=== PATIENT | female | born 1965 | race Caucasian/White ===

== ENCOUNTER 2018-03-17 15:15 | Emergency (ER) | payer BC ==
[2018-03-17 15:43] VITALS: BP 137/84
[2018-03-17] MEDS ORDERED: Lidocaine 1% with EPINEPHrine 1:100,000 20 ML MDV INJECT ONE (16:10)
--- NOTE | 2018-03-17 16:15 | EDM.PDOC ---
ED HPI GENERAL MEDICAL PROBLEM - General Chief Complaint: Laceration Stated Complaint: LEFT HAND LAC Time Seen by Provider: 03/17/18 16:00 Source of Information: Reports: Patient History Limitations: Reports: No Limitations - History of Present Illness INITIAL COMMENTS - FREE TEXT/NARRATIVE: Charity is a 53yo female, presents ambulatory to ED after lacerating her left hand with an exacto knife this afternoon while trying to cut the top of a pop can off. Laceration is 2cm, linear, between thumb and index finger. Bleeding is now controlled. She is unsure of last tetanus but "just had a physical and they said everything was up to date" at [facility]. Onset: Today Location: Reports: Upper Extremity, Left, Lower Extremity, Left Context: Reports: Trauma Treatments BLACK TOP RAKER: Reports: Other (see below) Other Treatments BLACK TOP RAKER: pressure - Related Data Allergies Allergy/AdvReac Type Severity Reaction Status Date / Time Penicillins Allergy Rash Verified 09/12/14 09:39 Home Meds: Home Meds . [No Known Home Meds] 09/10/16 [History] Past Medical History HEENT History: Reports: Impaired Vision Other HEENT History: glasses Gastrointestinal History: Reports: Hemorrhoids Musculoskeletal History: Reports: Fracture, RA Neurological History: Reports: Migraines Endocrine/Metabolic History: Reports: Hyperthyroidism Other Endocrine/Metabolic History: cysts on thyroids Social & Family History - Family History Family Medical History: Noncontributory - Tobacco Use Smoking Status *Q: Never Smoker - Caffeine Use Caffeine Use: Reports: Coffee, Soda - Recreational Drug Use Recreational Drug Use: No ED ROS GENERAL - Review of Systems Review Of Systems: See Below Constitutional: Reports: No Symptoms HEENT: Reports: No Symptoms Respiratory: Reports: No Symptoms Cardiovascular: Reports: No Symptoms Musculoskeletal: Reports: No Symptoms Skin: Reports: Other (laceration to lt hand, see HPI) Neurological: Reports: No Symptoms. Denies: Numbness, Paresthesia, Tingling ED EXAM, SKIN/RASH Exam: See Below Exam Limited By: No Limitations General Appearance: Alert, WD/WN, No Apparent Distress Eye Exam: Bilateral Eye: EOMI Ears: Normal External Exam, Hearing Grossly Normal Nose: Normal Inspection Throat/Mouth: Normal Inspection, Normal Lips, Normal Teeth, Normal Voice Head: Atraumatic, Normocephalic Neck: Normal Inspection Respiratory/Chest: No Respiratory Distress Cardiovascular: Normal Peripheral Pulses Peripheral Pulses: 2+: Radial (L), Radial (R) Extremities: Other (2cm linear laceration to skin between thumb and index finger to left hand, bleeding controlled, CMS intact to both thumb and index finger) Neurological: Alert, Oriented, CN II-XII Intact Psychiatric: Normal Affect, Normal Mood, Other (talkative) Skin: Warm, Dry, Wound/Incision (see exam under extremities) Location, Skin: Upper Extremity, Left Characteristics: Linear (laceration) ED SKIN PROCEDURES - Laceration/Wound Repair Left Hand Lac/Wound length In cm: 2 Appearance: Linear Distal NVT: Neuro & Vascular Intact, No Tendon Injury Anesthetic Type: Local Local Anesthesia - Lidocaine (Xylocaine): 1% with EPI Skin Prep: Chlorhexidine (Hibiciens) Exploration/Debridement/Repair: Wound Explored, In a Bloodless Field, Explored to Base, No Foreign Material Found Closed with: Sutures Suture Size: 4-0 Suture Type: Interrupted Course - Vital Signs Last Recorded V/S: Last Vital Signs Temp 98.7 F 03/17/18 15:41 Pulse 73 03/17/18 15:41 Resp 20 03/17/18 15:41 BP 137/84 03/17/18 15:41 Pulse Ox 99 03/17/18 15:41 - Orders/Labs/Meds Meds: Medications Discontinued Medications Generic Name Dose Route Start Last Admin Trade Name Elen PRN Reason Stop Dose Admin Lidocaine/Epinephrine 20 ml 03/17/18 16:10 03/17/18 16:57 Xylocaine 1% With Epinephrine 1:100,000 INJECT 03/17/18 16:11 20 ml ONETIME ONE Administration Departure - Departure Time of Disposition: 17:08 Disposition: Home, Self-Care 01 Condition: Good Clinical Impression: Laceration - Discharge Information Instructions: Laceration Care, Adult, [id number] Referrals: Olivia Carranza, MECHANICAL SERVICE SPECIALIST [Primary Care Provider] - Forms: ED Department Discharge Additional Instructions: Keep wound clean and dry, can wash hands with soap and water as usual and shower as usual, do not soak hand/wound. Antibiotic ointment and bandage during the day, can be open to air at night Suture removal in 7 - 10 days with PCP or walk-in clinic; follow up if symptoms of infection develop please follow up or return to ER
== END 2018-03-17 17:15 | disposition home or self-care (01) ==
LOC: JD.ED 15:15
DX: S61.412A Laceration without foreign body of left hand, initial encounter (principal); W26.0XXA Contact with knife, initial encounter; Z88.0 Allergy status to penicillin
CPT/HCPCS: 12001; 99282-25; 99283-25

== ENCOUNTER 2019-01-25 12:59 | Emergency (ER) | payer BC ==
[2019-01-25 13:06] VITALS: BP 157/82
[2019-01-25] MEDS ORDERED: Ketorolac 30 MG/ML SDV IVPUSH ONE (13:51)
[2019-01-25] MEDS ORDERED: Sodium Chloride 0.9% 1,000 ML IV SCH (14:00)
--- NOTE | 2019-01-25 14:06 | EDM.PDOC ---
ED HPI GENERAL MEDICAL PROBLEM - General Chief Complaint: Abdominal Pain Stated Complaint: [facility] Time Seen by Provider: 01/25/19 13:05 Source of Information: Reports: Patient, Old Records, RN Notes Reviewed History Limitations: Reports: No Limitations - History of Present Illness INITIAL COMMENTS - FREE TEXT/NARRATIVE: Patient is a 54-year-old female who presents to the ED for the evaluation of abdominal pain. The patient was seen at the walk-in clinic this morning for evaluation, and the patient believes she had a minor panic attack when they were trying to discharge her, so she was sent to the ED via ambulance service for further evaluation. The patient's labs and CT done at [facility] were all within normal limits. The patient states that she has been having some intermittent troubles with heavy vaginal bleeding, and one episode from December 29 January 01, and then the most current episode from January 15 today. The patient notes that she does have heavy bleeding, with some clots. She states that she changes her pad every 2 hours. She has been evaluated by Dr. Gramajo for this , and she did put on a progesterone taper. The patient also notes that she has had some minor thyroid issues, with her levels being at the low end of normal. The patient states she did have some left lower back pain yesterday and went to the chiropractor. She states that she noticed her right sided back pain started last night. The patient notes a history of endometriosis, and she is premenopausal, she does notice some hot flashes from time to time, however she does not feel that she is having hot flashes at this time. She denies any fevers but feels chilled. She had denies any nausea/vomiting/diarrhea. She states that her last normal bowel movement was this morning. The patient further denies any history of any chronic lower back issues. Abdomen Pain Score (Numeric/FACES): 10 - Related Data Allergies Allergy/AdvReac Type Severity Reaction Status Date / Time cephalexin Allergy Hives Verified 08/25/18 10:08 Penicillins Allergy Rash Verified 08/25/18 10:08 Home Meds: Home Meds Cyclobenzaprine [Flexeril] 5 mg PO BID PRN 01/25/19 [History] Folic Acid 1 mg PO DAILY 01/25/19 [History] L.acidoph,Paracasei, B.lactis [Probiotic] 1 each PO DAILY 01/25/19 [History] Methotrexate 15 mg PO Q7D 01/25/19 [History] medroxyPROGESTERone [Provera] 10 mg PO DAILY 01/25/19 [History] Past Medical History HEENT History: Reports: Impaired Vision Other HEENT History: glasses Gastrointestinal History: Reports: Hemorrhoids SUSTAIN ENGINEER History: Reports: Other (See Below) Other SUSTAIN ENGINEER History: irregular vaginal bleeding Musculoskeletal History: Reports: Fracture, RA Neurological History: Reports: Migraines Endocrine/Metabolic History: Reports: Hyperthyroidism Other Endocrine/Metabolic History: cysts on thyroids Social & Family History - Family History Family Medical History: Noncontributory - Tobacco Use Smoking Status *Q: Never Smoker - Caffeine Use Caffeine Use: Reports: Coffee - Recreational Drug Use Recreational Drug Use: No ED ROS GENERAL - Review of Systems Review Of Systems: See Below Constitutional: Reports: Chills HEENT: Reports: No Symptoms Respiratory: Reports: No Symptoms Cardiovascular: Reports: No Symptoms Endocrine: Reports: No Symptoms GI/Abdominal: Reports: Abdominal Pain (bilateral lower abdominal pain) : Reports: Flank Pain (right sided and into right groin), Irregular Menses ( dysfunctional uterine bleeding). Denies: Dysuria Musculoskeletal: Reports: Back Pain (right sided lower) Skin: Reports: No Symptoms Neurological: Reports: No Symptoms Psychiatric: Reports: No Symptoms Hematologic/Lymphatic: Reports: No Symptoms ED EXAM, GI/ABD - Physical Exam Exam: See Below Exam Limited By: No Limitations General Appearance: Alert, WD/WN, No Apparent Distress Eyes: Bilateral: Normal Appearance Ears: Normal External Exam Nose: Normal Inspection Throat/Mouth: Normal Inspection, Normal Oropharynx Head: Atraumatic, Normocephalic Neck: Normal Inspection, Supple, Non-Tender, Full Range of Motion Respiratory/Chest: No Respiratory Distress, Lungs Clear, Normal Breath Sounds, No Accessory Muscle Use, Chest Non-Tender Cardiovascular: Normal Peripheral Pulses, Regular Rate, Rhythm, No Murmur GI/Abdominal Exam: Normal Bowel Sounds, Soft, No Distention, No Mass, Tender ( bilateral lower quadrants and suprapubic with deep palpation) (Female) Exam: Deferred (states that she had a vaginal exam done by Dr. Gramajo a couple weeks ago.) Back Exam: Normal Inspection, Full Range of Motion Extremities: Normal Inspection, Normal Capillary Refill Neurological: Alert, Oriented, Normal Cognition, No Motor/Sensory Deficits Psychiatric: Normal Affect, Normal Mood Skin Exam: Warm, Dry, Intact, Normal Color, No Rash Course - Vital Signs Last Recorded V/S: Last Vital Signs Temp 98.7 F 01/25/19 13:04 Pulse 70 01/25/19 13:04 Resp 20 01/25/19 13:04 BP 157/82 H 01/25/19 13:04 Pulse Ox 100 01/25/19 13:04 - Orders/Labs/Meds Orders: Active Orders 24 hr Category Date Time Status Sodium Chloride 0.9% [Normal Saline] 1,000 ml Med 01/25/19 14:00 Ordered IV ASDIRECTED Medication Orders Sodium Chloride (Normal Saline) 1,000 mls @ 999 mls/hr IV ASDIRECTED MARIEL Last Admin: 01/25/19 14:00 Dose: 999 mls/hr Meds: Medications Generic Name Dose Route Start Last Admin Trade Name Freq PRN Reason Stop Dose Admin Sodium Chloride 1,000 mls @ 999 mls/hr 01/25/19 14:00 01/25/19 14:00 Normal Saline IV 999 mls/hr ASDIRECTED MARIEL Administration Discontinued Medications Generic Name Dose Route Start Last Admin Trade Name Freq PRN Reason Stop Dose Admin Ketorolac Tromethamine 30 mg 01/25/19 13:51 01/25/19 14:01 Toradol IVPUSH 01/25/19 13:52 30 mg ONETIME ONE Administration - Re-Assessments/Exams Free Text/Narrative Re-Assessment/Exam: 01/25/19 14:11 Patient presents to the ED for the evaluation of right sided abdominal pain. Her pain presentation is suspicious for a kidney stone in nature, however your CT at [facility] was done with contrast but also did not show any signs of possible kidney stone like hydronephrosis or ureteral dilatation. Her UA was positive for blood, however she is bleeding per her vagina as well. It is hard to delineate whether this is the actual cause of her pain or not. I have ordered 30 mg IV Toradol and IV fluids to be given for management at the ER today. It appears that [facility] did draw a free T4 level, and I will add a TSH to see if she is hyper or hypothyroid at this time. 01/25/19 15:44 Patient's TSH level is back, and is low at 0.192. Which would suggest that she is hyperthyroid at this time. I did order a T3 level, thyroid antibodies and a thyroid peroxidase to be drawn for evaluation. However these are send out labs , this was made known to the patient and she understands that she will be called with the results of these tests. I have recommended that she take it easy over the weekend, and that she may take ibuprofen as needed for further pain relief. She was educated on serious signs and when to return to the ER. She states she does have a referral with an flexible shaft winder however has not been able to correlate appointment. It was made imperative to her that she try harder to make an appointment with the flexible shaft winder for further evaluation of her hyperthyroidism. Departure - Departure Time of Disposition: 15:50 Disposition: Home, Self-Care 01 Condition: Fair Clinical Impression: Abdominal pain Qualifiers: Abdominal location: lower abdomen, unspecified Qualified Code(s): R10.30 - Lower abdominal pain, unspecified - Discharge Information *PRESCRIPTION DRUG MONITORING PROGRAM REVIEWED*: No *COPY OF PRESCRIPTION DRUG MONITORING REPORT IN PATIENT MARISELA: No Instructions: Abdominal Pain, Adult, [id number] Additional Instructions: You have been evaluated in the ED today for your lower abdominal pain. Your lab work done today demonstrate that you're TSH level is low, which means that you are in a mild hyperthyroid state. A few more labs have been ordered at this ED visit, however these are send out labs and you will be made known of the results as they are resulted to us. Recommend that you make an appointment with the flexible shaft winder that you have a referral to, for further evaluation of your thyroid issue. Please take it easy over the weekend, and limit your activities. You may take up to 600 mg ibuprofen every 6 hours for pain relief. Please return to the ED if your symptoms should change or worsen. - My Orders Last 24 Hours: My Active Orders 01/25/19 14:00 Sodium Chloride 0.9% [Normal Saline] 1,000 ml IV ASDIRECTED - Assessment/Plan Last 24 Hours: My Active Orders 01/25/19 14:00 Sodium Chloride 0.9% [Normal Saline] 1,000 ml IV ASDIRECTED
== END 2019-01-25 16:24 | disposition home or self-care (01) ==
LOC: JD.ED 12:59
DX: R10.30 Lower abdominal pain, unspecified (principal); Z88.0 Allergy status to penicillin; Z88.1 Allergy status to other antibiotic agents; Z79.899 Other long term (current) drug therapy
CPT/HCPCS: 36415; 84443; 84479; 86376; 86800; 96361; 96374; 99284; J1885; J7040

== ENCOUNTER 2019-12-30 08:17 | Emergency (ER) | payer BC ==
[2019-12-30 08:54] VITALS: PULSE 72
[2019-12-30] MEDS ORDERED: Sodium Chloride 0.9% 10 ML Syringe FLUSH PRN (08:57)
--- NOTE | 2019-12-30 09:05 | EDM.PDOC ---
ED HPI GENERAL MEDICAL PROBLEM - General Chief Complaint: Chest Pain Stated Complaint: CHEST PRESSURE/HEADACHE Time Seen by Provider: 12/30/19 08:47 Source of Information: Reports: Patient History Limitations: Reports: No Limitations - History of Present Illness INITIAL COMMENTS - FREE TEXT/NARRATIVE: The patient presents with chest pain and epigastric pain. This is like a pressure. It started last night. She has no shortness of breath with it. She has been having chills and then hot flashes. She also has a headache to the right occipital region. This comes and goes and it has been going on for weeks. She has no numbness or weakness. She does have some nausea but no vomiting. She denies fever, cough, numbness, weakness of feeling off balance. Onset: Gradual Duration: Day(s): Location: Reports: Head, Chest Quality: Reports: Pressure Severity: Mild Improves with: Reports: None Worsens with: Reports: None Associated Symptoms: Reports: Chest Pain, Fever/Chills, Headaches, Nausea/ Vomiting. Denies: Cough, Shortness of Breath Chest Pain Score (Numeric/FACES): 3 - Related Data Allergies Allergy/AdvReac Type Severity Reaction Status Date / Time celecoxib Allergy Hives Verified 12/30/19 08:43 cephalexin Allergy Hives Verified 12/30/19 08:43 Penicillins Allergy Rash Verified 12/30/19 08:43 Home Meds: Home Meds Cyclobenzaprine [Flexeril] 10 mg PO TID PRN #20 tab 12/30/19 [Rx] Methimazole [Tapazole] 5 mg PO DAILY 12/30/19 [History] buPROPion HCL [Bupropion HCl Sr] 100 mg PO DAILY 12/30/19 [History] Past Medical History HEENT History: Reports: Impaired Vision Other HEENT History: glasses Gastrointestinal History: Reports: Hemorrhoids REVIT DRAFTER History: Reports: Other (See Below) Other REVIT DRAFTER History: irregular vaginal bleeding Musculoskeletal History: Reports: Fracture, RA Neurological History: Reports: Migraines Endocrine/Metabolic History: Reports: Hyperthyroidism Other Endocrine/Metabolic History: cysts on thyroids Social & Family History - Family History Family Medical History: Noncontributory - Caffeine Use Caffeine Use: Reports: Coffee ED ROS GENERAL - Review of Systems Review Of Systems: See Below Constitutional: Reports: Chills. Denies: Fever HEENT: Reports: No Symptoms Respiratory: Reports: No Symptoms Cardiovascular: Reports: Chest Pain Endocrine: Reports: No Symptoms GI/Abdominal: Reports: Abdominal Pain, Nausea. Denies: Diarrhea, Vomiting : Reports: No Symptoms Musculoskeletal: Reports: No Symptoms Neurological: Reports: Headache ED EXAM, GENERAL - Physical Exam Exam: See Below Exam Limited By: No Limitations General Appearance: Alert, No Apparent Distress Eye Exam: Bilateral Eye: EOMI, PERRL Ears: Normal External Exam, Normal Canal, Normal TMs Nose: Normal Inspection Throat/Mouth: Normal Inspection Head: Atraumatic, Normocephalic, Other (Mild pain upon palpation to the right occipital region) Neck: Normal Inspection, Supple, Non-Tender Respiratory/Chest: No Respiratory Distress, Lungs Clear, Normal Breath Sounds Cardiovascular: Regular Rate, Rhythm, No Edema, No Murmur GI/Abdominal: Soft, Non-Tender, No Organomegaly, No Mass Back Exam: Normal Inspection Extremities: Normal Inspection Neurological: Alert, Oriented, No Motor/Sensory Deficits EKG INTERPRETATION EKG Date: 12/30/19 Time: 08:43 Rhythm: NSR Rate (Beats/Min): [address] [place]: Normal P-Wave: Present QRS: Normal ST-T: Normal QT: Normal Course - Vital Signs Last Recorded V/S: Last Vital Signs Temp 98.6 F 12/30/19 08:40 Pulse 72 12/30/19 08:40 Resp 12 12/30/19 08:40 BP 170/97 H 12/30/19 08:40 Pulse Ox 98 12/30/19 08:40 - Orders/Labs/Meds Orders: Active Orders 24 hr Category Date Time Status Cardiac Monitoring [RC] . DIRECTED Care 12/30/19 08:57 Active EKG Documentation Completion [RC] STAT Care 12/30/19 08:58 Active Peripheral IV Care [RC] . DIRECTED Care 12/30/19 08:58 Active Sodium Chloride 0.9% [Saline Flush] Med 12/30/19 08:57 Active 10 ml FLUSH ASDIRECTED PRN Peripheral IV Insertion Adult [OM.PC] Stat Oth 12/30/19 08:57 Ordered Medication Orders Sodium Chloride (Saline Flush) 10 ml FLUSH ASDIRECTED PRN PRN Reason: Keep Vein Open Last Admin: 12/30/19 09:20 Dose: 10 ml Labs: Laboratory Tests 12/30/19 12/30/19 12/30/19 Range/Units 09:20 09:20 09:20 WBC 3.97 L (3.98-10.04) K/mm3 RBC 4.46 (3.98-5.22) M/mm3 Hgb 13.7 (11.2-15.7) gm/dl Hct 42.3 (34.1-44.9) % MCV 94.8 D (79.4-94.8) fl MCH 30.7 (25.6-32.2) pg MCHC 32.4 (32.2-35.5) g/dl RDW Std Deviation 41.5 (36.4-46.3) fL Plt Count 346 D (182-369) K/mm3 MPV 9.2 L (9.4-12.3) fl Neut % (Auto) 69.4 (34.0-71.1) % Lymph % (Auto) 20.2 (19.3-51.7) % Rogers % (Auto) 8.3 (4.7-12.5) % Eos % (Auto) 1.8 (0.7-5.8) Baso % (Auto) 0.3 (0.1-1.2) % Neut # (Auto) 2.76 (1.56-6.13) K/mm3 Lymph # (Auto) 0.80 L (1.18-3.74) K/mm3 Rogers # (Auto) 0.33 (0.24-0.36) K/mm3 Eos # (Auto) 0.07 (0.04-0.36) K/mm3 Baso # (Auto) 0.01 (0.01-0.08) K/mm3 ESR 19 (0-20) mm/hr Sodium 142 (136-145) mEq/L Potassium 4.2 (3.5-5.1) mEq/L Chloride 105 (98-107) mEq/L Carbon Dioxide 31 (21-32) mEq/L Anion Gap 10.2 (5-15) BUN 10 (7-18) mg/dL Creatinine 0.8 (0.55-1.02) mg/dL Est Cr Clr Drug Dosing 68.05 mL/min Estimated GFR (MDRD) > 60 (>60) mL/min BUN/Creatinine Ratio 12.5 L (14-18) Glucose 100 (74-106) mg/dL Calcium 9.4 (8.5-10.1) mg/dL Total Bilirubin 1.0 (0.2-1.0) mg/dL AST 15 (15-37) U/L ALT 30 (14-59) U/L Alkaline Phosphatase 81 (46-116) U/L Troponin I < 0.017 (0.00-0.056) ng/mL C-Reactive Protein <0.2 (<1.0) mg/dL Total Protein 7.6 (6.4-8.2) g/dl Albumin 4.2 (3.4-5.0) g/dl Globulin 3.4 gm/dL Albumin/Globulin Ratio 1.2 (1-2) TSH 3rd Generation 1.427 (0.358-3.74) uIU/mL Meds: Medications Generic Name Dose Route Start Last Admin Trade Name Freq PRN Reason Stop Dose Admin Sodium Chloride 10 ml 12/30/19 08:57 12/30/19 09:20 Saline Flush FLUSH 10 ml ASDIRECTED PRN Administration Keep Vein Open - Re-Assessments/Exams Free Text/Narrative Re-Assessment/Exam: 12/30/19 09:05 I ordered an IV saline lock, EKG, CXR, CT of her head, and labs. 12/30/19 10:47 Her EKG shows a NSR with no acute changes. Her CT shows minimal mastoid sinus finding which are believed to be incidental and pre-existing. No acute intracranial abnormality is appreciated. Her CXR looks good. Her CBC and CMP look good. Her ESR and CRP are normal. Her troponin is negative. Her TSH is normal. She had the headache come back so I ordered some toradol. I will discharge her home with some muscle relaxers and see if that helps. Departure - Departure Time of Disposition: 10:50 Disposition: Home, Self-Care 01 Condition: Good Clinical Impression: Atypical chest pain Headache Qualifiers: Headache type: unspecified Headache chronicity pattern: acute headache Intractability: not intractable Qualified Code(s): R51 - Headache Prescriptions: Cyclobenzaprine [Flexeril] 10 mg PO TID PRN #20 tab PRN Reason: Pain Referrals: Theresa Whyte MD [Primary Care Provider] - 1 Week Forms: ED Department Discharge Additional Instructions: Take tylenol or motrin for pain. You can also try the flexeril every 8 hours as needed for the headache. Do not drive while taking it. Please return if you are worse. Sepsis Event Note - Evaluation Sepsis Screening Result: No Definite Risk - Focused Exam Vital Signs: Vital Signs Temp Pulse Resp BP Pulse Ox 12/30/19 08:40 98.6 F 72 12 170/97 H 98 Date Exam was Performed: 12/30/19 Time Exam was Performed: 10:47 - My Orders Last 24 Hours: My Active Orders 12/30/19 08:57 Cardiac Monitoring [RC] . DIRECTED Sodium Chloride 0.9% [Saline Flush] 10 ml FLUSH ASDIRECTED PRN Peripheral IV Insertion Adult [OM.PC] Stat 12/30/19 08:58 EKG Documentation Completion [RC] STAT Peripheral IV Care [RC] . DIRECTED - Assessment/Plan Last 24 Hours: My Active Orders 12/30/19 08:57 Cardiac Monitoring [RC] . DIRECTED Sodium Chloride 0.9% [Saline Flush] 10 ml FLUSH ASDIRECTED PRN Peripheral IV Insertion Adult [OM.PC] Stat 12/30/19 08:58 EKG Documentation Completion [RC] STAT Peripheral IV Care [RC] . DIRECTED
--- NOTE | 2019-12-30 09:35 | CT ---
Head CT Technique: Multiple axial sections through the brain were obtained. Comparison: Previous head CT exam of 09/12/14. Findings: Ventricles along with basal cisterns and sulci over the convexities are within normal limits for the patient's age. No abnormal parenchymal densities are seen. No evidence of intracranial hemorrhage. No midline shift or mass-effect is seen. Bone window settings were reviewed. No acute calvarial abnormality is appreciated. Minimal mucosal thickening is seen within the inferior mastoid sinuses on both sides. No acute paranasal sinus findings are seen. Impression: 1. Minimal mastoid sinus finding which are believed to be incidental and pre-existing. 2. No acute intracranial abnormality is appreciated. Diagnostic code #2 This report was dictated in MDT
--- NOTE | 2019-12-30 09:46 | CR ---
Chest: PA and lateral views of the chest were obtained. Comparison: No prior chest imaging is available. Mild scoliosis is noted within the spine. Heart size and mediastinum are normal. Lungs show no acute parenchymal change. Impression: 1. Nothing acute is appreciated on two-view chest x-ray. Diagnostic code #2 This report was dictated in MDT
[2019-12-30] MEDS ORDERED: Ketorolac 30 MG/ML SDV IVPUSH ONE (10:47)
[2019-12-30 11:21] VITALS: BP 147/89
== END 2019-12-30 11:20 | disposition home or self-care (01) ==
LOC: JD.ED 08:17
DX: R07.89 Other chest pain (principal); R51 Headache; Z88.1 Allergy status to other antibiotic agents; Z88.0 Allergy status to penicillin; Z79.899 Other long term (current) drug therapy
CPT/HCPCS: 36415; 70450; 71046; 80053; 84443; 84484; 85025; 85652; 86140; 93005; 96374; 99285; J1885; 93010; 99284

== ENCOUNTER 2020-06-17 17:10 | Emergency (ER) | payer BC ==
[2020-06-17 17:21] VITALS: BP 158/85; PULSE 67
[2020-06-17] MEDS ORDERED: Sodium Chloride 0.9% 10 ML Syringe FLUSH PRN (17:26)
[2020-06-17] MEDS ORDERED: Aspirin 81 MG Tab.Chew PO ONE (17:40)
--- NOTE | 2020-06-17 17:41 | EDM.PDOC ---
ED HPI GENERAL MEDICAL PROBLEM - General Chief Complaint: Chest Pain Stated Complaint: CHEST PAIN Time Seen by Provider: 06/17/20 17:26 Source of Information: Reports: Patient, RN Notes Reviewed - History of Present Illness INITIAL COMMENTS - FREE TEXT/NARRATIVE: Patient is a 55-year-old female presenting to the emergency department with complaints of intermittent midsternal chest pain that began this morning around 11 AM. She also reports that she had a headache this morning, however it has since resolved. She describes the pain as intermittent spasming feeling in her mid upper chest. She does occasionally get short of breath when the pain occurs. She estimates that the pain occurs a few times an hour and lasts about 30 to 40 seconds but it does occur. She denies any nausea, vomiting, or esophageal reflux. She denies any significant cardiac history. States she was diagnosed with a urinary tract infection in the clinic on Monday and has been taking Macrobid for the treatment of this ever since. Middle Chest Pain Score (Numeric/FACES): 6 - Related Data Allergies Allergy/AdvReac Type Severity Reaction Status Date / Time celecoxib Allergy Hives Verified 06/17/20 17:22 cephalexin Allergy Hives Verified 06/17/20 17:22 Penicillins Allergy Rash Verified 06/17/20 17:22 Home Meds: Home Meds Cyclobenzaprine [Flexeril] 10 mg PO TID PRN #20 tab 12/30/19 [Rx] Propranolol HCl 20 mg PO Q8H PRN 12/30/19 [History] buPROPion HCL [Bupropion HCl Sr] 100 mg PO DAILY 12/30/19 [History] methIMAzole [Tapazole] 5 mg PO DAILY 12/30/19 [History] Cyclobenzaprine [Flexeril] 5 - 10 mg PO Q8H PRN #15 tab 06/17/20 [Rx] Past Medical History HEENT History: Reports: Impaired Vision Other HEENT History: glasses Cardiovascular History: Reports: Other (See Below) Other Cardiovascular History: 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 History: Reports: Other (See Below) Other COMMERCIAL GLAZIER History: irregular vaginal bleeding Musculoskeletal History: Reports: Fracture, RA Neurological History: Reports: Migraines Psychiatric History: Reports: Anxiety Endocrine/Metabolic History: Reports: Hyperthyroidism Other Endocrine/Metabolic History: cysts on thyroids Hematologic History: Reports: Anemia - Infectious Disease History Infectious Disease History: Reports: Chicken Pox - Past Surgical History GI Surgical History: Reports: Colonoscopy Social & Family History - Family History Family Medical History: Noncontributory - Tobacco Use Smoking Status *Q: Never Smoker Second Hand Smoke Exposure: No - Caffeine Use Caffeine Use: Reports: None - Recreational Drug Use Recreational Drug Use: No ED ROS GENERAL - Review of Systems Review Of Systems: See Below Constitutional: Reports: No Symptoms. Denies: Fever, Chills, Weakness HEENT: Reports: No Symptoms Respiratory: Reports: Shortness of Breath (Occasional). Denies: Cough Cardiovascular: Reports: Chest Pain. Denies: Dyspnea on Exertion, Lightheadedness, Palpitations Endocrine: Reports: No Symptoms GI/Abdominal: Reports: No Symptoms. Denies: Abdominal Pain, Nausea, Vomiting : Reports: No Symptoms Musculoskeletal: Reports: No Symptoms Skin: Reports: No Symptoms Neurological: Reports: No Symptoms Psychiatric: Reports: No Symptoms Hematologic/Lymphatic: Reports: No Symptoms Immunologic: Reports: No Symptoms ED EXAM, GENERAL - Physical Exam Exam: See Below General Appearance: Alert, WD/WN, No Apparent Distress Respiratory/Chest: No Respiratory Distress, Lungs Clear, Normal Breath Sounds, No Accessory Muscle Use, Chest Non-Tender Cardiovascular: Normal Peripheral Pulses, Regular Rate, Rhythm, No Edema, No Gallop, No JVD, No Murmur, No Rub GI/Abdominal: Normal Bowel Sounds, Soft, Non-Tender, No Organomegaly, No Distention, No Abnormal Bruit, No Mass Neurological: Alert, Oriented, CN II-XII Intact, Normal Cognition, Normal Gait, Normal Reflexes, No Motor/Sensory Deficits Psychiatric: Normal Affect, Normal Mood Skin Exam: Warm, Dry, Intact, Normal Color, No Rash Course - Vital Signs Last Recorded V/S: Last Vital Signs Temp 98.4 F 06/17/20 17:18 Pulse 67 06/17/20 17:18 Resp 18 06/17/20 17:18 BP 158/85 H 06/17/20 17:18 Pulse Ox 100 06/17/20 17:18 - Orders/Labs/Meds Orders: Active Orders 24 hr Category Date Time Status EKG 12 Lead [EKG Documentation Completion] [RC] URGENT Care 06/17/20 17:26 Active EKG Documentation Completion [RC] STAT Care 06/17/20 17:26 Active Peripheral IV Care [RC] . DIRECTED Care 06/17/20 17:26 Active Chest 2V [CR] Stat Exams 06/17/20 17:26 Taken Sodium Chloride 0.9% [Saline Flush] Med 06/17/20 17:26 Active 10 ml FLUSH ASDIRECTED PRN Peripheral IV Insertion Adult [OM.PC] Stat Oth 06/17/20 17:26 Ordered Medication Orders Sodium Chloride (Saline Flush) 10 ml FLUSH ASDIRECTED PRN PRN Reason: Keep Vein Open Last Admin: 06/17/20 17:45 Dose: 10 ml Documented by: LESLEY Labs: Laboratory Tests 06/17/20 06/17/20 06/17/20 Range/Units 17:41 17:41 17:41 WBC 3.53 L (3.98-10.04) K/mm3 RBC 4.20 (3.98-5.22) M/mm3 Hgb 13.0 (11.2-15.7) gm/dl Hct 39.2 (34.1-44.9) % MCV 93.3 (79.4-94.8) fl MCH 31.0 (25.6-32.2) pg MCHC 33.2 (32.2-35.5) g/dl RDW Std Deviation 41.6 (36.4-46.3) fL Plt Count 313 (182-369) K/mm3 MPV 9.2 L (9.4-12.3) fl Neut % (Auto) 64.7 (34.0-71.1) % Lymph % (Auto) 22.9 (19.3-51.7) % [place] % (Auto) 10.2 (4.7-12.5) % Eos % (Auto) 1.4 (0.7-5.8) Baso % (Auto) 0.8 (0.1-1.2) % Neut # (Auto) 2.28 (1.56-6.13) K/mm3 Lymph # (Auto) 0.81 L (1.18-3.74) K/mm3 [place] # (Auto) 0.36 (0.24-0.36) K/mm3 Eos # (Auto) 0.05 (0.04-0.36) K/mm3 Baso # (Auto) 0.03 (0.01-0.08) K/mm3 D-Dimer, Quantitative < 0.19 L (0.19-0.50) mg/L Sodium 140 (136-145) mEq/L Potassium 4.0 (3.5-5.1) mEq/L Chloride 103 (98-107) mEq/L Carbon Dioxide 30 (21-32) mEq/L Anion Gap 11.0 (5-15) BUN 14 (7-18) mg/dL Creatinine 0.7 (0.55-1.02) mg/dL Est Cr Clr Drug Dosing 76.88 mL/min Estimated GFR (MDRD) > 60 (>60) mL/min BUN/Creatinine Ratio 20.0 H (14-18) Glucose 89 (74-106) mg/dL Calcium 9.0 (8.5-10.1) mg/dL Total Bilirubin 1.0 (0.2-1.0) mg/dL AST 14 L (15-37) U/L ALT 26 (14-59) U/L Alkaline Phosphatase 109 (46-116) U/L Troponin I < 0.017 (0.00-0.056) ng/mL C-Reactive Protein 0.4 (<1.0) mg/dL Total Protein 7.2 (6.4-8.2) g/dl Albumin 4.2 (3.4-5.0) g/dl Globulin 3.0 gm/dL Albumin/Globulin Ratio 1.4 (1-2) Meds: Medications Generic Name Dose Route Start Last Admin Trade Name Freq PRN Reason Stop Dose Admin Sodium Chloride 10 ml 06/17/20 17:26 06/17/20 17:45 Saline Flush FLUSH 10 ml ASDIRECTED PRN Administration Keep Vein Open Discontinued Medications Generic Name Dose Route Start Last Admin Trade Name Freq PRN Reason Stop Dose Admin Aspirin 324 mg 06/17/20 17:40 06/17/20 17:44 Aspirin PO 06/17/20 17:41 324 mg ONETIME ONE Administration Al Hydroxide/Mg Hydroxide 30 0 ml 06/17/20 18:45 ml/ Lidocaine HCl 15 ml PO 06/17/20 18:46 ONETIME ONE - Re-Assessments/Exams Free Text/Narrative Re-Assessment/Exam: 06/17/20 19:06 Hematology was grossly unremarkable. D-dimer was negative, troponin was negative, EKG showed a normal sinus rhythm with no acute abnormalities. Chest x-ray was normal. Discussed with patient that pain could relate to esophageal spasms versus intermittent spasms of the muscles in the chest wall. Patient declined a GI cocktail. I have ordered Toradol 30 mg IV to be given now prior to discharge. Recommend that she use [id number] ibuprofen as needed for discomfort. I will also send a prescription for Flexeril for muscle spasms. Discharge instructions as documented. Departure - Departure Time of Disposition: 19:06 Disposition: Home, Self-Care 01 Condition: Good Clinical Impression: Atypical chest pain Prescriptions: Cyclobenzaprine [Flexeril] 5 - 10 mg PO Q8H PRN #15 tab PRN Reason: Muscle Spasm Instructions: Nonspecific Chest Pain, Adult Referrals: Theresa Whyte GEOMORPHOLOGIST [Primary Care Provider] - Forms: ED Department Discharge Additional Instructions: You were seen in the emergency department today for intermittent mid chest pain. Your work-up included blood work, an EKG of your heart, and a chest x-ray. Your work-up was found to be completely normal. You are not having heart attack and you do not have blood clots in your lungs. Your electrolytes were also found to be normal. As we discussed, possible causes of this could be esophageal spasms or muscle spasms within the chest wall. GI cocktail was declined in the emergency department. You did receive Toradol which is an NSAID through your IV. Recommend that you use [id number] ibuprofen routinely over the next few days; however, you should not take your next dose until 6 hours after you received the Toradol in the ER. A prescription for Flexeril has also been sent. This is a muscle relaxer and may help to reduce the symptoms. Take this medication as prescribed as needed for muscle spasms. Please be aware that this can make you sleepy. Recommend follow-up with your primary care provider at her next available visit. Return to the ER for any new or worsening symptoms of concern. Sepsis Event Note (ED) - Evaluation Sepsis Screening Result: No Definite Risk - Focused Exam Vital Signs: Vital Signs Temp Pulse Resp BP Pulse Ox 06/17/20 17:18 98.4 F 67 18 158/85 H 100 - My Orders Last 24 Hours: My Active Orders 06/17/20 17:26 EKG 12 Lead [EKG Documentation Completion] [RC] URGENT EKG Documentation Completion [RC] STAT Peripheral IV Care [RC] . DIRECTED Chest 2V [CR] Stat Sodium Chloride 0.9% [Saline Flush] 10 ml FLUSH ASDIRECTED PRN Peripheral IV Insertion Adult [OM.PC] Stat - Assessment/Plan Last 24 Hours: My Active Orders 06/17/20 17:26 EKG 12 Lead [EKG Documentation Completion] [RC] URGENT EKG Documentation Completion [RC] STAT Peripheral IV Care [RC] . DIRECTED Chest 2V [CR] Stat Sodium Chloride 0.9% [Saline Flush] 10 ml FLUSH ASDIRECTED PRN Peripheral IV Insertion Adult [OM.PC] Stat
[2020-06-17] MEDS ORDERED: Alum Hydrox/Mag Hydrox/Simeth 30 ML, Lidocaine 2% 15 ML PO ONE ×2 (18:45)
[2020-06-17] MEDS ORDERED: Ketorolac 30 MG/ML SDV IVPUSH ONE (19:05)
--- NOTE | 2020-06-17 19:25 | CR ---
Chest: PA and lateral views of the chest were obtained. Comparison: Prior chest x-ray of 12/30/19. Heart size is felt to be slightly prominent. Upper mediastinum is normal. Lungs are clear. Slight scoliosis is noted within the spine which is stable. Mild scattered disc space narrowing is noted within the spine. Impression: 1. Findings as noted above. 2. Nothing acute is seen. Diagnostic code #2 This report was dictated in MDT
== END 2020-06-17 19:00 | disposition home or self-care (01) ==
LOC: JD.ED 17:10
DX: R07.89 Other chest pain (principal); R07.2 Precordial pain; R51 Headache; F41.9 Anxiety disorder, unspecified; Z88.0 Allergy status to penicillin; Z88.1 Allergy status to other antibiotic agents; Z79.899 Other long term (current) drug therapy
CPT/HCPCS: 36415; 71046; 80053; 84484; 85025; 85379; 86140; 93005; 96374; 99285; A9270; J1885; 93010; 99283

== ENCOUNTER 2021-09-06 20:06 | Emergency (ER) | payer BC ==
[2021-09-06 20:26] VITALS: BP 158/97; PULSE 69
--- NOTE | 2021-09-06 20:55 | CR ---
Chest: PA and lateral views of the chest were obtained. Comparison: Prior chest x-ray of 06/17/20. Heart size is at the upper limits of normal. Upper mediastinum appears within normal limits. Lungs are clear with no acute parenchymal change. Bony structures appear within normal limits for the patient's age. Impression: 1. Findings as described above. 2. Nothing acute is seen. No change from previous study is seen. Diagnostic code #2
--- NOTE | 2021-09-06 21:25 | EDM.PDOC ---
ED HPI GENERAL MEDICAL PROBLEM - General Chief Complaint: Chest Pain Stated Complaint: CHEST PAINS THROUGHOUT THE DAY Time Seen by Provider: 09/06/21 20:09 Source of Information: Reports: Patient, RN Notes Reviewed History Limitations: Reports: No Limitations - History of Present Illness INITIAL COMMENTS - FREE TEXT/NARRATIVE: Patient is a 56-year-old female presenting to the emergency department for evaluation of intermittent chest pressure throughout the day. Patient reports symptoms come and go and are minimally present at the time of exam. Patient reports that she has been having intermittent palpitations for the last few weeks; however, she does not report any today. She wore a Holter monitor last week and was notified that she had 2 episodes of tachycardia while wearing it. Patient does have a history of hyperthyroidism but has been off her Tapazole since April. Reports when she feels the palpitations coming on, she has been taking a propanolol that was prescribed by her ladies attendant for this. Symptoms do eventually resolved with the use of this. She was called by her ladies attendant today after she reviewed the results of her Holter monitor and started on metoprolol succinate 50 mg daily. She has not taken this yet. Reports her TSH was checked on by her primary care provider and she was told that it was in the normal range. When she has the chest pressure and palpitations, she reports she does feel anxious and jittery. Sometimes it feels like it is difficult for her to swallow. She had an episode today while at the pharmacy and states that her blood pressure was found to be in the 180s systolically, however after resting for a few minutes it came down to the 150s. Baseline heart rate for her is in the 70s and 80s, however when she has the palpitations she reports a heart rate pf 110-120. She denies any cough or shortness of breath, but states she has felt somewhat fatigued throughout the day. Patient reports that she is fully vaccinated against Covid. Bilateral Upper Chest Pain Score (Numeric/FACES): 6 - Related Data Allergies Allergy/AdvReac Type Severity Reaction Status Date / Time celecoxib Allergy Severe Hives Verified 09/06/21 20:26 cephalexin Allergy Severe Hives Verified 09/06/21 20:26 Penicillins Allergy Severe Rash Verified 09/06/21 20:26 Home Meds: Home Meds Propranolol HCl 20 mg PO Q8H PRN 12/30/19 [History] buPROPion HCL [Bupropion HCl Sr] 100 mg PO DAILY 12/30/19 [History] methIMAzole [Tapazole] 5 mg PO DAILY 12/30/19 [History] Cyclobenzaprine [Flexeril] 5 - 10 mg PO BID PRN 09/06/21 [History] Metoprolol Succinate 50 mg PO DAILY 09/06/21 [History] Past Medical History HEENT History: Reports: Impaired Vision Other HEENT History: glasses Cardiovascular History: Reports: Other (See Below) Other Cardiovascular History: 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: Reports: Other (See Below) Other TRAINS DISPATCHER SUPERVISOR History: irregular vaginal bleeding Musculoskeletal History: Reports: Fracture, RA Neurological History: Reports: Migraines Psychiatric History: Reports: Anxiety Endocrine/Metabolic History: Reports: Hyperthyroidism Other Endocrine/Metabolic History: cysts on thyroids Hematologic History: Reports: Anemia - Infectious Disease History Infectious Disease History: Reports: Chicken Pox - Past Surgical History GI Surgical History: Reports: Colonoscopy Social & Family History - Family History Family Medical History: No Pertinent Family History - Caffeine Use Caffeine Use: Reports: None ED ROS GENERAL - Review of Systems Review Of Systems: See Below Constitutional: Reports: Fatigue. Denies: Fever, Chills HEENT: Reports: No Symptoms Respiratory: Reports: No Symptoms. Denies: Shortness of Breath, Cough Cardiovascular: Reports: Chest Pain (Pressure) Endocrine: Reports: No Symptoms GI/Abdominal: Reports: No Symptoms : Reports: No Symptoms Musculoskeletal: Reports: No Symptoms Skin: Reports: No Symptoms Neurological: Reports: No Symptoms. Denies: Confusion, Dizziness, Headache Psychiatric: Reports: Anxiety Hematologic/Lymphatic: Reports: No Symptoms Immunologic: Reports: No Symptoms ED EXAM, GENERAL - Physical Exam Exam: See Below Exam Limited By: No Limitations General Appearance: Alert, WD/WN, No Apparent Distress Respiratory/Chest: No Respiratory Distress, Lungs Clear, Normal Breath Sounds, No Accessory Muscle Use, Chest Non-Tender Cardiovascular: Normal Peripheral Pulses, Regular Rate, Rhythm, No Edema, No Gallop, No JVD, No Murmur, No Rub GI/Abdominal: Normal Bowel Sounds, Soft, Non-Tender, No Organomegaly, No Distention, No Abnormal Bruit, No Mass Neurological: Alert, Oriented, Normal Cognition, Normal Gait, No Motor/Sensory Deficits Psychiatric: Normal Affect, Normal Mood Skin Exam: Warm, Dry, Intact, Normal Color, No Rash #1 Interpretation EKG Date: 09/06/21 Time: 20:17 Rhythm: NSR Rate (Beats/Min): 65 [place]: Normal P-Wave: Present QRS: Normal ST-T: Normal QT: Normal Course - Vital Signs Last Recorded V/S: Last Vital Signs Temp 97.3 F 09/06/21 20:16 Pulse 69 09/06/21 20:16 Resp 18 09/06/21 20:16 BP 158/97 H 09/06/21 20:16 Pulse Ox 99 09/06/21 20:16 - Orders/Labs/Meds Labs: Laboratory Tests 09/06/21 09/06/21 09/06/21 Range/Units 20:32 20:32 20:32 WBC 3.93 L (3.98-10.04) K/mm3 RBC 4.03 (3.98-5.22) M/mm3 Hgb 12.3 (11.2-15.7) gm/dl Hct 37.2 (34.1-44.9) % MCV 92.3 (79.4-94.8) fl MCH 30.5 (25.6-32.2) pg MCHC 33.1 (32.2-35.5) g/dl RDW Std Deviation 40.8 (36.4-46.3) fL Plt Count 304 (182-369) K/mm3 MPV 9.3 L (9.4-12.3) fl Neut % (Auto) 63.3 (34.0-71.1) % Lymph % (Auto) 27.0 (19.3-51.7) % [place] % (Auto) 7.6 (4.7-12.5) % Eos % (Auto) 1.8 (0.7-5.8) Baso % (Auto) 0.3 (0.1-1.2) % Neut # (Auto) 2.49 (1.56-6.13) K/mm3 Lymph # (Auto) 1.06 L (1.18-3.74) K/mm3 [place] # (Auto) 0.30 (0.24-0.36) K/mm3 Eos # (Auto) 0.07 (0.04-0.36) K/mm3 Baso # (Auto) 0.01 (0.01-0.08) K/mm3 D-Dimer, Quantitative < 0.19 L (0.19-0.50) mg/L Sodium 144 (136-145) mEq/L Potassium 3.8 (3.5-5.1) mEq/L Chloride 106 (98-107) mEq/L Carbon Dioxide 30 (21-32) mEq/L Anion Gap 11.8 (5-15) BUN 15 (7-18) mg/dL Creatinine 0.7 (0.55-1.02) mg/dL Est Cr Clr Drug Dosing 76.00 mL/min Estimated GFR (MDRD) > 60 (>60) mL/min BUN/Creatinine Ratio 21.4 H (14-18) Glucose 146 H (70-99) mg/dL Calcium 8.8 (8.5-10.1) mg/dL Total Bilirubin 0.7 (0.2-1.0) mg/dL AST 13 L (15-37) U/L ALT 22 (14-59) U/L Alkaline Phosphatase 100 (46-116) U/L Troponin I < 0.017 (0.00-0.056) ng/mL C-Reactive Protein <0.2 (<1.0) mg/dL Total Protein 6.7 (6.4-8.2) g/dl Albumin 4.0 (3.4-5.0) g/dl Globulin 2.7 gm/dL Albumin/Globulin Ratio 1.5 (1-2) TSH 3rd Generation (0.358-3.74) uIU/mL SARS-CoV-2 RNA (DAYA) (NEGATIVE) 09/06/21 09/06/21 Range/Units 20:32 21:30 WBC (3.98-10.04) K/mm3 RBC (3.98-5.22) M/mm3 Hgb (11.2-15.7) gm/dl Hct (34.1-44.9) % MCV (79.4-94.8) fl MCH (25.6-32.2) pg MCHC (32.2-35.5) g/dl RDW Std Deviation (36.4-46.3) fL Plt Count (182-369) K/mm3 MPV (9.4-12.3) fl Neut % (Auto) (34.0-71.1) % Lymph % (Auto) (19.3-51.7) % [place] % (Auto) (4.7-12.5) % Eos % (Auto) (0.7-5.8) Baso % (Auto) (0.1-1.2) % Neut # (Auto) (1.56-6.13) K/mm3 Lymph # (Auto) (1.18-3.74) K/mm3 [place] # (Auto) (0.24-0.36) K/mm3 Eos # (Auto) (0.04-0.36) K/mm3 Baso # (Auto) (0.01-0.08) K/mm3 D-Dimer, Quantitative (0.19-0.50) mg/L Sodium (136-145) mEq/L Potassium (3.5-5.1) mEq/L Chloride (98-107) mEq/L Carbon Dioxide (21-32) mEq/L Anion Gap (5-15) BUN (7-18) mg/dL Creatinine (0.55-1.02) mg/dL Est Cr Clr Drug Dosing mL/min Estimated GFR (MDRD) (>60) mL/min BUN/Creatinine Ratio (14-18) Glucose (70-99) mg/dL Calcium (8.5-10.1) mg/dL Total Bilirubin (0.2-1.0) mg/dL AST (15-37) U/L ALT (14-59) U/L Alkaline Phosphatase (46-116) U/L Troponin I (0.00-0.056) ng/mL C-Reactive Protein (<1.0) mg/dL Total Protein (6.4-8.2) g/dl Albumin (3.4-5.0) g/dl Globulin gm/dL Albumin/Globulin Ratio (1-2) TSH 3rd Generation 0.380 (0.358-3.74) uIU/mL SARS-CoV-2 RNA (DAYA) Negative (NEGATIVE) - Re-Assessments/Exams Free Text/Narrative Re-Assessment/Exam: Patient is a 56-year-old female presenting to the emergency department for evaluation of intermittent chest pressure throughout the day today. Reports history of hyperthyroidism but has been off of her Tapazole since April. Exam is unremarkable. I have ordered blood work, chest x-ray, EKG, Covid testing. 09/06/21 21:38 Hematology is overall unremarkable. TSH is 0.380 which is very close to the cutoff for hyperthyroid. Is possible that she is having some hyperthyroid symptoms at this level. D-dimer and troponin are both undetectably low. EKG shows no acute abnormalities. Chest x-ray is normal. Recommend that she begin taking the metoprolol succinate as prescribed. She has a follow-up appointment scheduled her primary care provider, Theresa Whyte, on Monday. Recommend that she keep this. We will call her with her Covid results as it will likely be another hour until results are available. She is in agreement with this plan. Discharge instructions as documented. Departure - Departure Time of Disposition: 21:40 Disposition: Home, Self-Care 01 Condition: Good Clinical Impression: Atypical chest pain Instructions: Nonspecific Chest Pain, Adult Referrals: Theresa Whyte, DIGITAL MARKETING EXECUTIVE [Primary Care Provider] - Forms: ED Department Discharge Additional Instructions: Take the metoprolol succinate as prescribed. Continue all previously prescribed medications. Keep follow-up appointment as scheduled with your primary care provider on Monday. Return to ER for any new or worsening symptoms. Sepsis Event Note (ED) - Evaluation Sepsis Screening Result: No Definite Risk - Focused Exam Vital Signs: Vital Signs Temp Pulse Resp BP Pulse Ox 09/06/21 20:16 97.3 F 69 18 158/97 H 99
== END 2021-09-06 22:00 | disposition home or self-care (01) ==
LOC: JD.ED 20:06
DX: R07.89 Other chest pain (principal); Z88.1 Allergy status to other antibiotic agents; Z88.0 Allergy status to penicillin; Z20.822 Contact with and (suspected) exposure to COVID-19
CPT/HCPCS: 36415; 71046; 71046-26; 80053; 84443; 84484; 85025; 85379; 86140; 93005; 93010; 99284; 99285-25; U0002

== ENCOUNTER 2021-09-08 09:55 | Emergency (ER) | payer BC ==
[2021-09-08 10:13] VITALS: BP 163/93; PULSE 53
[2021-09-08] MEDS ORDERED: Alum Hydrox/Mag Hydrox/Simeth 30 ML, Lidocaine 2% 15 ML PO ONE ×2 (10:27)
[2021-09-08] MEDS ORDERED: Sodium Chloride 0.9% 10 ML Syringe FLUSH PRN (10:27)
--- NOTE | 2021-09-08 10:59 | EDM.PDOC ---
ED HPI GENERAL MEDICAL PROBLEM - General Chief Complaint: Chest Pain Stated Complaint: chest pain Time Seen by Provider: 09/08/21 09:59 Source of Information: Reports: Patient History Limitations: Reports: No Limitations - History of Present Illness INITIAL COMMENTS - FREE TEXT/NARRATIVE: 56-year-old female presents the emergency department today with complaints of intermittent chest pressure. Patient has been seen here recently 2 days ago and in May 2021 with similar complaints. Patient states she does have a history of thyroid issues and does see an family readiness support assistant. She states back in February she was taken off of her thyroid medication as her levels had remained constant. She states she does not see her family readiness support assistant again until December 2021, however most recently did see her family readiness support assistant in June 2021. She states she was recently started on metoprolol and has taken this for the past 2 nights. She states last night she did eat to chocolates and shortly after developed intermittent chest pressure. She did not take any medications at that time to attempt to relieve the discomfort. She states she was recently started on omeprazole approximately 1 week ago by her primary care provider. She is concerned however when she was having the chest discomfort she checked her blood pressure and it was elevated and her heart rate was only in the 50s. Likely due to the beta-elif effect. Patient's previous ER visit she did have a full cardiac work-up and was unremarkable. It was mentioned that she may have esophageal spasm however patient refused GI cocktail on that visit. She denies any history of cardiac or stroke. Patient is anxious. She states at times when she is having the chest pressure she has difficulty swallowing as she feels like there is something in the back of her throat which she believes is her thyroid. She was supposed to have follow-up with cardiology services however she states that yesterday they found her to schedule and she did not return the call due to the fact that she believes is due to her thyroid. Chest Pain Score (Numeric/FACES): 3 - Related Data Allergies Allergy/AdvReac Type Severity Reaction Status Date / Time celecoxib Allergy Severe Hives Verified 09/08/21 10:14 cephalexin Allergy Severe Hives Verified 09/08/21 10:14 Penicillins Allergy Severe Rash Verified 09/08/21 10:14 Home Meds: Home Meds Propranolol HCl 20 mg PO Q8H PRN 12/30/19 [History] buPROPion HCL [Bupropion HCl Sr] 100 mg PO DAILY 12/30/19 [History] methIMAzole [Tapazole] 5 mg PO DAILY 12/30/19 [History] Cyclobenzaprine [Flexeril] 5 - 10 mg PO BID PRN 09/06/21 [History] Metoprolol Succinate 50 mg PO DAILY 09/06/21 [History] Cholecalciferol (Vitamin D3) [Vitamin D] 50,000 unit PO ASDIRECTED 09/08/21 [History] Past Medical History HEENT History: Reports: Impaired Vision Other HEENT History: glasses Cardiovascular History: Reports: Other (See Below) Other Cardiovascular History: 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 Gastrointestinal History: Reports: Hemorrhoids Genitourinary History: Reports: UTI, Recurrent COMMUNITY EDUCATION COORDINATOR History: Reports: Other (See Below) Other COMMUNITY EDUCATION COORDINATOR History: irregular vaginal bleeding Musculoskeletal History: Reports: Fracture, RA Neurological History: Reports: Migraines Psychiatric History: Reports: Anxiety Endocrine/Metabolic History: Reports: Hyperthyroidism Other Endocrine/Metabolic History: cysts on thyroids Hematologic History: Reports: Anemia - Infectious Disease History Infectious Disease History: Reports: Chicken Pox, Novel Coronavirus - Past Surgical History GI Surgical History: Reports: Colonoscopy Social & Family History - Family History Family Medical History: No Pertinent Family History - Tobacco Use Tobacco Use Status *Q: Never Tobacco User - Caffeine Use Caffeine Use: Reports: Coffee - Recreational Drug Use Recreational Drug Use: No ED ROS GENERAL - Review of Systems Review Of Systems: Comprehensive ROS is negative, except as noted in HPI. ED EXAM, GENERAL - Physical Exam Exam: See Below Exam Limited By: No Limitations General Appearance: Alert, WD/WN, No Apparent Distress Ears: Normal External Exam, Hearing Grossly Normal Nose: Normal Inspection Throat/Mouth: Normal Inspection, Normal Lips, Normal Voice, No Airway Compromise Head: Atraumatic, Normocephalic Neck: Normal Inspection, Supple Respiratory/Chest: No Respiratory Distress, Lungs Clear, Normal Breath Sounds, No Accessory Muscle Use, Chest Non-Tender Cardiovascular: Normal Peripheral Pulses, Regular Rate, Rhythm, No Edema, No Murmur Peripheral Pulses: 2+: Radial (L), Radial (R) GI/Abdominal: Normal Bowel Sounds, Soft, Non-Tender, No Distention (Female) Exam: Deferred Rectal (Female) Exam: Deferred Back Exam: Normal Inspection Extremities: Normal Inspection, No Pedal Edema, Normal Capillary Refill Neurological: Alert, Oriented, Normal Cognition Psychiatric: Anxious Skin Exam: Warm, Dry, Intact, Normal Color, No Rash Lymphatic: No Adenopathy #1 Interpretation EKG Date: 09/08/21 Time: 10:05 Rhythm: NSR Rate (Beats/Min): 65 [place]: Normal P-Wave: Present QRS: Normal ST-T: Normal QT: Normal EKG Interpretation Comments: Per Dr. Garcia interpretation: Sinus rhythm at 65 bpm; anteroseptal infarct, age indeterminate Course - Vital Signs Text/Narrative:: As stated above, patient presents with intermittent chest pressure. Patient is hemodynamically stable at the time of my exam. Physical exam is essentially unremarkable. Unable to reproduce chest discomfort however patient did have an episode while was standing in the room. Vital signs and heart rate did remain stable at that time. Will complete a full cardiac work-up on this patient however I do suspect that it may be due to esophageal vasospasm. Patient will also be given a GI cocktail to see if this helps. Last Recorded V/S: Last Vital Signs Temp 97.2 F 09/08/21 10:11 Pulse 53 L 09/08/21 10:11 Resp 15 09/08/21 10:11 BP 163/93 H 09/08/21 10:11 Pulse Ox 100 09/08/21 10:11 - Orders/Labs/Meds Orders: Active Orders 24 hr Category Date Time Status Sodium Chloride 0.9% [Saline Flush] Med 09/08/21 10:27 Active 10 ml FLUSH ASDIRECTED PRN Saline Lock Insert [OM.PC] Stat Oth 09/08/21 10:27 Ordered Medication Orders Sodium Chloride (Sodium Chloride 0.9% 10 Ml Syringe) 10 ml FLUSH ASDIRECTED PRN PRN Reason: Keep Vein Open Last Admin: 09/08/21 10:37 Dose: 10 ml Documented by: LUIS Labs: Laboratory Tests 09/08/21 09/08/21 Range/Units 10:15 10:15 WBC 4.84 (3.98-10.04) K/mm3 RBC 4.39 (3.98-5.22) M/mm3 Hgb 13.5 (11.2-15.7) gm/dl Hct 40.1 (34.1-44.9) % MCV 91.3 (79.4-94.8) fl MCH 30.8 (25.6-32.2) pg MCHC 33.7 (32.2-35.5) g/dl RDW Std Deviation 40.2 (36.4-46.3) fL Plt Count 333 (182-369) K/mm3 MPV 9.5 (9.4-12.3) fl Neut % (Auto) 67.4 (34.0-71.1) % Lymph % (Auto) 22.3 (19.3-51.7) % [place] % (Auto) 8.5 (4.7-12.5) % Eos % (Auto) 1.4 (0.7-5.8) Baso % (Auto) 0.2 (0.1-1.2) % Neut # (Auto) 3.26 (1.56-6.13) K/mm3 Lymph # (Auto) 1.08 L (1.18-3.74) K/mm3 [place] # (Auto) 0.41 H (0.24-0.36) K/mm3 Eos # (Auto) 0.07 (0.04-0.36) K/mm3 Baso # (Auto) 0.01 (0.01-0.08) K/mm3 Sodium 143 (136-145) mEq/L Potassium 4.2 (3.5-5.1) mEq/L Chloride 103 (98-107) mEq/L Carbon Dioxide 27 (21-32) mEq/L Anion Gap 17.2 H (5-15) BUN 19 H (7-18) mg/dL Creatinine 0.8 (0.55-1.02) mg/dL Est Cr Clr Drug Dosing 66.50 mL/min Estimated GFR (MDRD) > 60 (>60) mL/min BUN/Creatinine Ratio 23.8 H (14-18) Glucose 89 (70-99) mg/dL Calcium 9.0 (8.5-10.1) mg/dL Magnesium 1.9 (1.8-2.4) mg/dL Total Bilirubin 1.0 (0.2-1.0) mg/dL AST 14 L (15-37) U/L ALT 25 (14-59) U/L Alkaline Phosphatase 101 (46-116) U/L Troponin I < 0.017 (0.00-0.056) ng/mL C-Reactive Protein <0.2 (<1.0) mg/dL Total Protein 7.3 (6.4-8.2) g/dl Albumin 4.3 (3.4-5.0) g/dl Globulin 3.0 gm/dL Albumin/Globulin Ratio 1.4 (1-2) TSH 3rd Generation 0.381 (0.358-3.74) uIU/mL Meds: Medications Generic Name Dose Route Start Last Admin Trade Name Freq PRN Reason Stop Dose Admin Sodium Chloride 10 ml 09/08/21 10:27 09/08/21 10:37 Sodium Chloride 0.9% 10 Ml Syringe FLUSH 10 ml ASDIRECTED PRN Administration Keep Vein Open Discontinued Medications Generic Name Dose Route Start Last Admin Trade Name Freq PRN Reason Stop Dose Admin Al Hydroxide/Mg Hydroxide 30 0 ml 09/08/21 10:27 09/08/21 10:37 ml/ Lidocaine HCl 15 ml PO 09/08/21 10:28 45 ml ONETIME ONE Administration - Re-Assessments/Exams Free Text/Narrative Re-Assessment/Exam: 09/08/21 11:43 Patient states she did notice some relief from the GI cocktail. 09/08/21 11:44 Hematology is unremarkable, chemistry reveals a sodium of 143, potassium 4.2, anion gap 17.2, BUN 19, creatinine 0.8, glucose 89, magnesium 1.9, AST 14, ALT 25, alk phos 101, troponin less than 0.017, C-reactive protein less than 0.2, TSH 0.381. Radiologist impression frontal view of the chest: Heart size is at the upper limits of normal. Upper mediastinum is normal. Lungs are clear with no acute parenchymal change. Bony structures show nothing acute. Impression: 1. Nothing acute is seen on frontal chest x-ray. Discussed the results of labs, chest x-ray and EKG with the patient. Suspect again this is likely due to esophageal vasospasm. Patient is currently taking omeprazole as stated earlier. At this time will not change any medications. She will be discharged home with recommendations that she continue taking all of her medications as prescribed. She has an appointment scheduled with her primary care provider for this Friday, September 10, 2021. Recommend that she discuss with her provider a referral to cardiology and possibly a stress test. Departure - Departure Time of Disposition: 11:46 Disposition: Home, Self-Care 01 Condition: Good Clinical Impression: Atypical chest pain Instructions: Nonspecific Chest Pain, Adult, [id number] Referrals: PCP,None [Primary Care Provider] - Forms: ED Department Discharge Additional Instructions: He was seen in the emergency department today with intermittent chest pressure. Full cardiac cup was completed to include labs, EKG and a chest x-ray. All other labs were essentially unremarkable, EKG was unremarkable as well as chest x-ray. You did receive a GI cocktail while in the emergency department and this did seem to help a bit. Suspect that your chest discomfort is due to esophageal vasospasm. Recommend that you follow-up with your primary care provider as scheduled on September 10. She may want to try different medication regimen for you to treat this. May take Maalox as needed if this does seem to help. This is an [id number] medication. Your thyroid levels today were within normal limits. You may need to have your primary care provider refer you to cardiology and possibly a stress test. For the time being, recommend that you discontinue any caffeine intake including coffee, soda and chocolates. Stay away from spicy foods. Should your condition worsen or change do not hesitate return to the emergency department. Sepsis Event Note (ED) - Evaluation Sepsis Screening Result: No Definite Risk - Focused Exam Vital Signs: Vital Signs Temp Pulse Resp BP Pulse Ox 09/08/21 10:11 97.2 F 53 L 15 163/93 H 100 - My Orders Last 24 Hours: My Active Orders 09/08/21 10:27 Sodium Chloride 0.9% [Saline Flush] 10 ml FLUSH ASDIRECTED PRN Saline Lock Insert [OM.PC] Stat - Assessment/Plan Last 24 Hours: My Active Orders 09/08/21 10:27 Sodium Chloride 0.9% [Saline Flush] 10 ml FLUSH ASDIRECTED PRN Saline Lock Insert [OM.PC] Stat
--- NOTE | 2021-09-08 11:32 | CR ---
Chest: Frontal view of the chest was obtained. Comparison: Prior chest x-ray of 09/06/21. Heart size is at the upper limits of normal. Upper mediastinum is normal. Lungs are clear with no acute parenchymal change. Bony structures show nothing acute. Impression: 1. Nothing acute is seen on frontal chest x-ray. Diagnostic code #2
== END 2021-09-08 12:16 | disposition home or self-care (01) ==
LOC: JD.ED 09:55
DX: R07.89 Other chest pain (principal); E03.9 Hypothyroidism, unspecified; Z88.0 Allergy status to penicillin; Z88.1 Allergy status to other antibiotic agents; Z79.899 Other long term (current) drug therapy; Z86.16 Personal history of COVID-19
CPT/HCPCS: 36415; 71045; 80053; 83735; 84443; 84484; 85025; 86140; 93005; 99285; A9270

== ENCOUNTER 2024-11-11 18:50 | Emergency (ER) | payer BC ==
[2024-11-11 19:07] VITALS: PULSE 63
[2024-11-11] MEDS: Acetaminophen 325 MG Tab PO ONE (20:43)
[2024-11-11 20:46] VITALS: BP 149/83
== END 2024-11-11 20:49 | disposition home or self-care (01) ==
LOC: JD.ED 18:50
DX: S80.12XA Contusion of left lower leg, initial encounter (principal); Z88.0 Allergy status to penicillin; Z88.1 Allergy status to other antibiotic agents; Z79.899 Other long term (current) drug therapy; Z86.16 Personal history of COVID-19; X58.XXXA Exposure to other specified factors, initial encounter; Y93.89 Activity, other specified
CPT/HCPCS: 73562; 93971; 99284; A9270; 99283